=== PATIENT | female | born 2000 | race Caucasian/White ===

== ENCOUNTER 2021-02-08 15:55 | Observation (INO) | payer MEDICAID ==
[~2021-02-08] VITALS: Ht 152.4 cm; Wt 93.4 kg
== END 2021-02-08 19:12 | disposition home or self-care (01) ==
LOC: 8 EST LDRP 15:55 → 8 EST A/PP 15:56
PROVIDERS: ADMIT Obstetrics & Gynecology; ATTEND Obstetrics & Gynecology
DX: O36.8130 Decreased fetal movements, third trimester, not applicable or unspecified (principal); O62.9 Abnormality of forces of labor, unspecified; Z3A.35 35 weeks gestation of pregnancy
CPT/HCPCS: 59025; 76815; 76818; G0378; 99281

== ENCOUNTER 2021-02-11 15:16 | Observation (INO) | payer MEDICAID ==
[~2021-02-11] VITALS: Ht 152.4 cm; Wt 104.3 kg
[2021-02-11] MEDS ORDERED: PREN1TAB78 MT (15:59)
== END 2021-02-11 17:15 | disposition home or self-care (01) ==
LOC: 8 EST LDRP 15:16
PROVIDERS: ADMIT Obstetrics & Gynecology; ATTEND Obstetrics & Gynecology
DX: Z36.89 Encounter for other specified antenatal screening (principal); Z3A.36 36 weeks gestation of pregnancy
CPT/HCPCS: 59025; 76815; 76818; G0378; 99281

== ENCOUNTER 2021-02-17 09:35 | Inpatient (IN) | payer MEDICAID ==
[~2021-02-17] VITALS: Ht 152.4 cm; Wt 94.8 kg
[~2021-02-17 09:35] MED LIST: PREN1TAB78 MT
[2021-02-17] MEDS ORDERED: LIDOCAINE HCL 1% 20ML VIAL (Pyxis) INJ INFIL SCH (11:00)
[2021-02-17] MEDS ORDERED: NALOXONE HCL 0.4 MG/ML 1ML VIAL IM PRN (11:00)
[2021-02-17] MEDS ORDERED: BUTORPHANOL TARTRATE 2 MG/ML VIAL IV PRN (11:00)
[2021-02-17 12:38] LABS: BASOPHILS % 0.1 % (0.0-2.0); EOSINOPHILS % 0.4 % (0.0-5.0); HEMATOCRIT. 32.6 % (36.0-48.0); LYMPHOCYTES % 15.2 % (20.0-50.0); MEAN CORPUSCULAR HEMOGLOBIN 26.1 pg (28.0-32.0); MEAN CORPUSCULAR VOLUME 77.5 fL (81.0-99.0); MONOCYTES % 7.2 % (2.0-8.0); NEUTROPHILS % 77.1 % (40.0-76.0); PLATELET 310 x1000/uL (130-400); RED BLOOD CELL COUNT 4.21 mill/uL (4.2-5.4); RED CELL DISTRIBUTION WIDTH 13.1 % (11.6-14.6)
[2021-02-17 13:03] LABS: INR 0.9; PARTIAL THROMBOPLASTIN TIME 25.6 sec (23.4-31.0); PROTHROMBIN TIME 9.6 sec (9.6-11.0)
[2021-02-17 13:08] LABS: CLARITY URINE CLEAR (CLEAR); COLOR URINE YELLOW (YELLOW); KETONES URINE NEGATIVE (NEGATIVE); LEUKOCYTE ESTERASE URINE 1+ (NEGATIVE); NITRITE URINE NEGATIVE (NEGATIVE); OCCULT BLOOD URINE NEGATIVE (NEGATIVE); PROTEIN URINE TRACE (NEGATIVE); UROBILINOGEN URINE 0.2 E.U./dL (0.2-1.0)
[2021-02-17 13:32] LABS: *BARBITURATES SCREEN URINE NEGATIVE (NEGATIVE); *BENZODIAZEPINES SCREEN URINE NEGATIVE (NEGATIVE); *COCAINE SCREEN URINE NEGATIVE (NEGATIVE); METHADONE URINE SCREEN NEGATIVE (NEGATIVE)
[2021-02-17 13:33] LABS: CANNABINOID URINE SCREEN NEGATIVE (NEGATIVE); OPIATES URINE SCREEN NEGATIVE (NEGATIVE); PHENCYCLIDINE URINE SCREEN NEGATIVE (NEGATIVE)
[2021-02-17 13:37] LABS: *AMPHETAMINES SCREEN URINE NEGATIVE (NEGATIVE)
[2021-02-17] MEDS: MISOPROSTOL 100MCG TABLET VG SCH ×3 (13:43→22:36)
[2021-02-17 13:56] LABS: HEPATITIS B SURFACE ANTIGEN NEGATIVE
[2021-02-17] MEDS ORDERED: PENICILLIN G POTASSIUM 5 MMU in DEXT 5% WATER 100 ML IV SCH (14:00)
[2021-02-17] MEDS: LACTATED RINGERS 1,000 ML IV SCH ×2 (14:58→18:28)
[2021-02-17] MEDS ORDERED: ROPIVACAINE HCL/PF EPIDURAL 200 ML EPI SCH (16:30)
[2021-02-17] MEDS: PENICILLIN G POTASSIUM 2.5 MMU in DEXTROSE 5% WATER 50 ML IV SCH (20:44)
[2021-02-18] MEDS: PENICILLIN G POTASSIUM 2.5 MMU in DEXTROSE 5% WATER 50 ML IV SCH ×3 (00:41→08:37)
[2021-02-18] MEDS ORDERED: ACETAMINOPHEN 325MG TABLET PO PRN (03:15)
[2021-02-18] MEDS: LACTATED RINGERS 1,000 ML IV SCH ×2 (03:37→10:31)
[2021-02-18] MEDS: DEXT 5%/LR + PITOCIN 20UNITS/L 1,000 ML IV SCH ×2 (04:52→15:06)
[2021-02-18] MEDS ORDERED: FENTANYL CITRATE/PF 50MCG/ML 2ML VIAL ONE (11:13)
[2021-02-18] MEDS ORDERED: BUPIVACAINE HCL/PF 0.25% (2.5MG/ML) 10ML ONE (11:14)
[2021-02-18] MEDS ORDERED: ROPIVACAINE HCL/PF EPIDURAL 200 ML EPI ONE (11:14)
[2021-02-18] MEDS ORDERED: METHYLERGONOVINE MALEATE 0.2 MG/ML IM NR (13:30)
[2021-02-18] MEDS ORDERED: LIDOCAINE HCL 1% 20ML VIAL (Pyxis) INJ INFIL NR (14:15)
[2021-02-18] MEDS ORDERED: IBUPROFEN 800MG TABLET PO PRN (16:00)
[2021-02-18] MEDS ORDERED: IBUPROFEN 400MG TABLET PO PRN (16:00)
[2021-02-18] MEDS ORDERED: HEMORRHOIDAL SUPP PR PRN (16:00)
[2021-02-18] MEDS ORDERED: BENZOCAINE/LANOLIN/ALOE VERA SPRAY TOP PRN (16:00)
[2021-02-18] MEDS ORDERED: RHO(D) IMMUNE GLOBULIN 300 MCG/SYR IM PRN (16:00)
[2021-02-18] MEDS ORDERED: DEXT 5%/LR + PITOCIN 20UNITS/L 1,000 ML IV SCH (16:00)
[2021-02-18] MEDS ORDERED: GLYCERIN/WITCH HAZEL LEAF MEDICATED PAD TOP PRN (16:00)
[2021-02-18] MEDS ORDERED: BISACODYL 10MG SUPP PR PRN (16:00)
[2021-02-18] MEDS ORDERED: ACETAMINOPHEN WITH CODEINE 300/30MG TABLET PO PRN (16:00)
[2021-02-18] MEDS ORDERED: LANOLIN OINT 7GM TUBE TOP PRN (16:00)
[2021-02-18 17:00] VITALS: BP 108/66
[2021-02-18 19:05] VITALS: BP 107/64
[2021-02-18] MEDS: DOCUSATE SODIUM 100MG CAPSULE PO SCH (21:11)
[2021-02-18] MEDS: MAGNESIUM/ALUMINUM HYDROXIDE/SIMETHICONE 30ML UDC PO SCH (21:11)
[2021-02-18] MEDS: SIMETHICONE 80MG TABLET CHEW PO SCH (21:11)
[2021-02-19 03:30] VITALS: BP 99/55
[2021-02-19 07:05] LABS: BASOPHILS % 0.3 % (0.0-2.0); EOSINOPHILS % 0.5 % (0.0-5.0); HEMATOCRIT. 31.4 % (36.0-48.0); HEMOGLOBIN. 10.4 g/dL (12.0-16.0); LYMPHOCYTES % 18.4 % (20.0-50.0); MEAN CORPUSCULAR HEMOGLOBIN 26.2 pg (28.0-32.0); MEAN CORPUSCULAR VOLUME 79.1 fL (81.0-99.0); MEAN PLATELET VOLUME 8.8 fl (7.4-10.4); MONOCYTES % 8.5 % (2.0-8.0); NEUTROPHILS % 72.3 % (40.0-76.0); PLATELET 290 x1000/uL (130-400); RED BLOOD CELL COUNT 3.97 mill/uL (4.2-5.4); RED CELL DISTRIBUTION WIDTH 13.4 % (11.6-14.6)
[2021-02-19 07:30] VITALS: BP 114/58
[2021-02-19] MEDS: MAGNESIUM/ALUMINUM HYDROXIDE/SIMETHICONE 30ML UDC PO SCH ×4 (07:30→22:07)
[2021-02-19] MEDS: SIMETHICONE 80MG TABLET CHEW PO SCH ×4 (08:00→22:08)
[2021-02-19] MEDS: FERROUS SULFATE 325MG TABLET PO SCH ×3 (09:11→18:08)
[2021-02-19] MEDS: PRENATAL VIT/FE FUMARATE/FA TABLET PO SCH (09:12)
[2021-02-19 15:41] VITALS: BP 112/74
[2021-02-19 22:00] VITALS: BP 118/68
[2021-02-19] MEDS: DOCUSATE SODIUM 100MG CAPSULE PO SCH (22:08)
[2021-02-20 05:32] VITALS: BP 100/60
[2021-02-20] MEDS: SIMETHICONE 80MG TABLET CHEW PO SCH (08:00)
[2021-02-20] MEDS: MAGNESIUM/ALUMINUM HYDROXIDE/SIMETHICONE 30ML UDC PO SCH (08:29)
[2021-02-20] MEDS: FERROUS SULFATE 325MG TABLET PO SCH (08:29)
[2021-02-20] MEDS: PRENATAL VIT/FE FUMARATE/FA TABLET PO SCH (08:29)
[2021-02-20 08:30] VITALS: BP 114/68
== END 2021-02-20 10:55 | disposition home or self-care (01) | DRG 560 ==
LOC: 8 EST LDRP 09:35 → OBSVTOIN 11:38 → 8EST 02-18 16:45
PROVIDERS: ADMIT Obstetrics & Gynecology; ATTEND Obstetrics & Gynecology
PROC: 10E0XZZ Delivery of Products of Conception, External Approach (ICD-10-PCS; principal; 2021-02-18)
PROC: 0KQM0ZZ Repair Perineum Muscle, Open Approach (ICD-10-PCS; 2021-02-18)
PROC: 3E0R3BZ Introduction of Anesthetic Agent into Spinal Canal, Percutaneous Approach (ICD-10-PCS; 2021-02-18)
PROC: 00HU33Z Insertion of Infusion Device into Spinal Canal, Percutaneous Approach (ICD-10-PCS; 2021-02-18)
DX: O26.62 Liver and biliary tract disorders in childbirth (principal); Z37.0 Single live birth; K83.1 Obstruction of bile duct; Z20.822 Contact with and (suspected) exposure to COVID-19; O70.1 Second degree perineal laceration during delivery; Z3A.37 37 weeks gestation of pregnancy
CPT/HCPCS: 36415; 76805; 76818; 80305; 81003; 85025; 86592; 86703; 86762; 86850; 86900; 87340; 87426; 99281; G0378; J0595; J2540; J2590; J2795; J3010; J3490; J7060; J7120; A4315